=== PATIENT | male | born 1980 | race Caucasian/White ===

== ENCOUNTER 2021-04-18 14:45 | Emergency (ER) | payer OTHER ==
[~2021-04-18] VITALS: Ht 170.2 cm; Wt 86.0 kg
[2021-04-18 15:59] LABS: BASOPHILS % 0.4 % (0.0-2.0); EOSINOPHILS % 1.5 % (0.0-5.0); HEMATOCRIT. 45.2 % (42.0-52.0); HEMOGLOBIN. 14.6 g/dL (14.0-18.0); LYMPHOCYTES % 17.9 % (20.0-50.0); MEAN CORPUSCULAR HEMOGLOBIN 22.4 pg (28.0-32.0); MEAN CORPUSCULAR VOLUME 69.5 fL (80.0-94.0); MEAN PLATELET VOLUME 8.4 fl (7.4-10.4); NEUTROPHILS % 72.2 % (40.0-76.0); PLATELET 248 x1000/uL (130-400); RED BLOOD CELL COUNT 6.51 mill/uL (4.7-6.1); RED CELL DISTRIBUTION WIDTH 14.4 % (11.6-14.6)
[2021-04-18 16:05] LABS: CHLORIDE 108 mEq/L (98-107)
[2021-04-18] MEDS ORDERED: KETOROLAC 30MG/ML VIAL IV ONE (17:00)
[2021-04-18 17:44] LABS: PLATELET ESTIMATE NORMAL
[2021-04-18 20:41] VITALS: BP 138/88
== END 2021-04-18 20:42 | disposition home or self-care (01) ==
LOC: ER 14:45
DX: R07.89 Other chest pain (principal); E78.00 Pure hypercholesterolemia, unspecified
CPT/HCPCS: 36415; 71045; 80053; 83880; 84484; 85025; 93005; 96374; 99285; J1885